=== PATIENT | female | born 1970 | race Caucasian/White ===

== ENCOUNTER 2016-07-27 03:28 | Emergency (ER) | payer MEDICAID ==
[~2016-07-27] VITALS: Ht 154.9 cm; Wt 51.3 kg
--- NOTE | 2016-07-27 03:53 | PHYS DOC ---
Past Medical History Past Medical History: Asthma, Migraines, Other Additional Past Medical Histor: HEP C, ENDOMETRIOSIS Past Surgical History: Hysterectomy, Other Additional Past Surgical Histo: COMPLETE HYSTERECTOMY, LIVER BX Alcohol Use: None Drug Use: Marijuana Adult General Chief Complaint Chief Complaint: Congestion HPI HPI Patient is a 46 year old female presenting to the emergency department for evaluation of cough congestion fevers chills body aches. Symptoms have been going on for 3 days and fever subjective and cough is nonproductive. Patient is in no obvious distress vital signs. Review of Systems Review of Systems Constitutional: Denies fever or chills [] HENT: + nasal congestion and sore throat [] Respiratory: + cough. No shortness of breath [] Cardiovascular: No additional information not addressed in HPI [] GI: Denies abdominal pain, nausea, vomiting, bloody stools or diarrhea [] Neurologic: Denies headache, focal weakness or sensory changes [] Current Medications Current Medications Current Medications Medications (Trade) Dose Ordered Sig/Howard Start Time Stop Time Status Last Admin Dose Admin Albuterol/ Ipratropium (Duoneb) 3 ml 1X ONCE 07/27/16 04:00 07/27/16 04:01 DC 07/27/16 04:01 3 ML Dexamethasone Sodium Phosphate (Decadron) 6 mg 1X ONCE 07/27/16 04:00 07/27/16 04:01 DC 07/27/16 04:05 6 MG Allergies Allergies Allergies Coded Allergies Type Severity Reaction Last Updated Verified azithromycin Allergy Intermediate Rash 07/27/16 Yes Physical Exam Physical Exam Constitutional: Well developed, well nourished, no acute distress, non-toxic appearance. [] HENT: Normocephalic, atraumatic, bilateral external ears normal, pharynx erythemetous but no oral exudates, nose with BL boggy turbinates and rhinorrhea. [] Cardiovascular:Heart rate regular rhythm, no murmur [] Lungs & Thorax: Bilateral breath sounds coarse with I/E wheezing noted. Neurologic: Alert and oriented X 3, normal motor function, normal sensory function, no focal deficits noted. [] Current Patient Data Vital Signs Vital Signs Date Time Temp Pulse Resp B/P Pulse Ox O2 Delivery O2 Flow Rate FiO2 07/27/16 04:01 95 Room Air 07/27/16 03:36 99.2 81 20 99.2 Lab Values Laboratory Tests Test 07/27/16 03:35 Influenza Type A Antigen Negative (NEGATIVE) Influenza Type B Antigen Negative (NEGATIVE) EKG EKG [] Radiology/Procedures Radiology/Procedures Chest x-ray shows normal mediastinum and normal heart size with no free air opacity or pneumothorax. Course & Med Decision Making Course & Med Decision Making Patient with upper respiratory symptoms causing postnasal drip and wheezing. She was given Decadron and DuoNeb here and her symptoms were improved. Vital signs are normal and she looks well so she'll be treated supportively as an outpatient with recommendations for Nasonex Benadryl albuterol and Alma for pain and cough. Patient aware and agreeable with plan for discharge and verbalized understanding of the need for short-term follow-up and strict ER return precautions discussed including worsening pain fevers shortness of breath or other general concerns. Dragon Disclaimer Dragon Disclaimer This electronic medical record was generated, in whole or in part, using a voice recognition dictation system. Departure Departure Impression: Primary Impression: URI (upper respiratory infection) Additional Impression: Wheezing Disposition: 01 HOME, SELF-CARE Condition: GOOD Patient Instructions: Upper Respiratory Infection, Adult Additional Instructions: Use otc nasonex and benadryl for your congestion Scripts Hydrocodone/Apap 5-325 (Alma 5-325 Tablet)1 Each Tablet1 Tab PO PRN Q6HRS #14 TAB Prov:DODIE TALAVERA DO 07/27/16 Albuterol Sulfate (Proair Hfa Inhaler)8.5 Gm Hfa.aer.ad1 Puff INH Q4HRS PRN SHORTNESS OF BREATH #1 INHALER Prov:DODIE TALAVERA DO 07/27/16 Problem Qualifiers DODIE TALAVERA DO July 27, 2016 03:53
[2016-07-27] MEDS ORDERED: IPRATRPIUM/ALBUTEROL 0.5/2.5MG 3 ML NEBU. NEB ONE (04:00)
[2016-07-27] MEDS ORDERED: DEXAMETHASONE SOD PHOS 4 MG/ML VIAL PO ONE (04:00)
[2016-07-27 04:19] LABS: OBC FLU VALID
[2016-07-27] MEDS ORDERED: HYDR-971 PO (04:40)
[2016-07-27] MEDS ORDERED: PROAIR HFA8.5 GM INH (04:40)
[2016-07-27 04:45] VITALS: BP 120/72
--- NOTE | 2016-07-27 07:37 | RAD ---
Indication cough. Frontal and lateral views of the chest were obtained. No prior imaging is available. The heart and pulmonary vessels appear normal. The lungs are clear. An acute finding is not apparent on plain films. IMPRESSION: No acute finding apparent in the chest
== END 2016-07-27 04:48 | disposition home or self-care (01) ==
LOC: ER 03:28
DX: J06.9 Acute upper respiratory infection, unspecified (principal); J45.909 Unspecified asthma, uncomplicated; G43.909 Migraine, unspecified, not intractable, without status migrainosus; Z90.710 Acquired absence of both cervix and uterus; Z86.19 Personal history of other infectious and parasitic diseases; F12.10 Cannabis abuse, uncomplicated; Z88.1 Allergy status to other antibiotic agents
CPT/HCPCS: 71020; 87804; 94640; 99285; J1100; J7620

== ENCOUNTER 2016-10-20 20:54 | Emergency (ER) | payer MEDICAID, OTHER ==
[~2016-10-20] VITALS: Ht 152.4 cm; Wt 46.7 kg
[~2016-10-20 20:54] MED LIST: HYDR-971 PO; PROAIR HFA8.5 GM INH
[2016-10-20 21:05] VITALS: BP 137/86
[2016-10-20] MEDS ORDERED: KETOROLAC TROMETHAMINE 60 MG/2 ML INJ. IM ONE (21:15)
[2016-10-20] MEDS ORDERED: NAPR500T PO (21:38)
--- NOTE | 2016-10-20 21:38 | PHYS DOC ---
Past Medical History Past Medical History: Asthma, Migraines, Other Additional Past Medical Histor: HEP C, ENDOMETRIOSIS Past Surgical History: Hysterectomy, Other Additional Past Surgical Histo: COMPLETE HYSTERECTOMY, LIVER BX Alcohol Use: None Drug Use: Marijuana Adult General Chief Complaint Chief Complaint: RIB PAIN HPI HPI Patient is a 46 year old E male that presents to the emergency department with complaints of left rib pain. She states that she had a migraine this morning which caused her to have nausea with vomiting. She states this caused her left ribs to her. She is concerned she may have broken her ribs. Review of Systems Review of Systems Constitutional: Denies fever or chills [] Eyes: Denies change in visual acuity, redness, or eye pain [] HENT: Denies nasal congestion or sore throat [] Respiratory: Denies cough or shortness of breath; complaining of left rib pain [] Cardiovascular: No additional information not addressed in HPI [] GI: Denies abdominal pain, nausea, vomiting, bloody stools or diarrhea [] : Denies dysuria or hematuria [] Musculoskeletal: Denies back pain or joint pain [] Integument: Denies rash or skin lesions [] Neurologic: Denies headache, focal weakness or sensory changes [] Endocrine: Denies polyuria or polydipsia [] Current Medications Current Medications Current Medications Medications (Trade) Dose Ordered Sig/Howard Start Time Stop Time Status Last Admin Dose Admin Ketorolac Tromethamine (Toradol Im) 60 mg 1X ONCE 10/20/16 21:15 10/20/16 21:16 DC 10/20/16 21:27 60 MG Allergies Allergies Allergies Coded Allergies Type Severity Reaction Last Updated Verified azithromycin Allergy Intermediate Rash 07/27/16 Yes Physical Exam Physical Exam Constitutional: Well developed, well nourished, no acute distress, non-toxic appearance. [] HENT: Normocephalic, atraumatic, bilateral external ears normal, oropharynx moist, no oral exudates, nose normal. [] Eyes: PERRLA, EOMI, conjunctiva normal, no discharge. [] Neck: Normal range of motion, no tenderness, supple, no stridor. [] Cardiovascular:Heart rate regular rhythm, no murmur [] Lungs & Thorax: Bilateral breath sounds clear to auscultation; mild tenderness to palpate over the intercostal spaces, 7-10 left lateral chest wall. Symmetrical chest wall movement with inspiration and expiration. [] Abdomen: Bowel sounds normal, soft, no tenderness, no masses, no pulsatile masses. [] Skin: Warm, dry, no erythema, no rash. [] Back: No tenderness, no CVA tenderness. [] Extremities: No tenderness, no cyanosis, no clubbing, ROM intact, no edema. [] Neurologic: Alert and oriented X 3, normal motor function, normal sensory function, no focal deficits noted. [] Psychologic: Affect normal, judgement normal, mood normal. [] Current Patient Data Vital Signs Vital Signs Date Time Temp Pulse Resp B/P (MAP) Pulse Ox O2 Delivery O2 Flow Rate FiO2 10/20/16 21:05 98.2 79 16 100 Room Air 98.2 EKG EKG [] Radiology/Procedures Radiology/Procedures Chest x-ray reviewed by this provider, no evidence pneumothorax. [] Course & Med Decision Making Course & Med Decision Making Pertinent Labs and Imaging studies reviewed. (See chart for details) [] Dragon Disclaimer Dragon Disclaimer This electronic medical record was generated, in whole or in part, using a voice recognition dictation system. Departure Departure Impression: Primary Impression: Chest wall pain Disposition: HOME, SELF-CARE Condition: LEFT WITHOUT BEING SEEN Referrals: NO PCP (PCP) [facility] Patient Instructions: Chest Wall Pain Scripts Naproxen (NAPROSYN) 500 Mg Tablet 500 MG PO BID Y for feliz, #20 TAB Prov: JODY HUFFMAN APRN 10/20/16 JODY HUFFMAN APRN Oct 20, 2016 21:38
--- NOTE | 2016-10-21 07:30 | RAD ---
Chest 2 views 10/20/2016 Clinical indication: Pain left ribs Comparison: 07/27/2016 chest radiograph Findings: Cardiac and mediastinal silhouettes are within normal limits. No pleural effusion, pneumothorax or focal consolidation. Impression: No acute cardiopulmonary abnormality.
== END 2016-10-20 21:50 | disposition home or self-care (01) ==
LOC: ER 20:54
DX: R07.89 Other chest pain (principal); J45.909 Unspecified asthma, uncomplicated; G43.909 Migraine, unspecified, not intractable, without status migrainosus; Z86.19 Personal history of other infectious and parasitic diseases; Z90.710 Acquired absence of both cervix and uterus; F12.10 Cannabis abuse, uncomplicated; Z88.1 Allergy status to other antibiotic agents
CPT/HCPCS: 71020; 96372; 99284; J1885

== ENCOUNTER 2016-10-25 12:28 | Emergency (ER) | payer OTHER ==
[~2016-10-25 12:28] MED LIST changes: +NAPR500T PO
[2016-10-25 12:34] VITALS: BP 142/88
--- NOTE | 2016-10-25 13:03 | PHYS DOC ---
Past Medical History Past Medical History: Migraines, Other Additional Past Medical Histor: HEP C, Past Surgical History: Hysterectomy Additional Past Surgical Histo: COMPLETE HYSTERECTOMY, LIVER BX Additional Information: 03/28 PPD Alcohol Use: None Drug Use: Marijuana Adult General Chief Complaint Chief Complaint: RIB PAIN [facility] HPI Patient is a 46 year old female presents emergency partner stating that she is having left rib pain and discomfort. Patient states that she was seen here last for the pain and discomfort had x-rays done and was told there was no fractures and sent home with naproxen. 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 She states that she is having increased pain with breathing, taking a deep breath, or leaning back or leaning forward. Patient has not taken anything further for pain and discomfort since last night. Patient states that the discomfort started on her ribs after she had vomited last from having a migraine headache. Review of Systems Review of Systems Constitutional: Denies fever or chills [] Eyes: Denies change in visual acuity, redness, or eye pain [] HENT: Denies nasal congestion or sore throat [] Respiratory: Denies cough or shortness of breath [] Cardiovascular: No additional information not addressed in HPI [] GI: Denies abdominal pain, nausea, vomiting, bloody stools or diarrhea [] : Denies dysuria or hematuria [] Musculoskeletal: Denies back pain or joint pain [] Integument: Denies rash or skin lesions [] Neurologic: Denies headache, focal weakness or sensory changes [] Endocrine: Denies polyuria or polydipsia [] Current Medications Current Medications Current Medications Medications (Trade) Dose Ordered Sig/[facility] Start Time Stop Time Status Last Admin Dose Admin Naproxen (Naprosyn) 500 mg 1X ONCE 10/25/16 13:15 10/25/16 13:16 DC Allergies Allergies Allergies Coded Allergies Type Severity Reaction Last Updated Verified azithromycin Allergy Intermediate Rash 07/27/16 Yes Physical Exam Physical Exam Constitutional: Well developed, well nourished, no acute distress, non-toxic appearance. [] HENT: Normocephalic, atraumatic, bilateral external ears normal, oropharynx moist, no oral exudates, nose normal. [] Eyes: PERRLA, EOMI, conjunctiva normal, no discharge. [] Neck: Normal range of motion, no tenderness, supple, no stridor. [] Cardiovascular:Heart rate regular rhythm, no murmur [] Lungs & Thorax: Bilateral breath sounds clear to auscultation. Left ribs along the lateral lower to on the lateral side appears to be deformity upon palpation no visual deformity noted. No bruising noted. Equal chest expansion noted. Abdomen: Bowel sounds normal, soft, no tenderness, no masses, no pulsatile masses. [] Skin: Warm, dry, no erythema, no rash. [] Back: No tenderness Extremities: No tenderness, no cyanosis, no clubbing, ROM intact, no edema. [] Neurologic: Alert and oriented X 3, normal motor function, normal sensory function, no focal deficits noted. [] Psychologic: Affect normal, judgement normal, mood normal. [] Current Patient Data Vital Signs Vital Signs Date Time Temp Pulse Resp B/P (MAP) Pulse Ox O2 Delivery O2 Flow Rate FiO2 10/25/16 12:34 98.1 76 20 97 Room Air 98.1 EKG EKG [] Radiology/Procedures Radiology/Procedures [][facility] [address] [place] [address] IMAGING REPORT Signed PATIENT: AVA DELGADO ACCOUNT: [id number] : 1970 LOCATION: ER AGE: 46 SEX: F EXAM STATUS: REG ER ORD. PHYSICIAN: NAOMIE CABRAL APRN REASON: left rib pain after vomiting PROCEDURE: RIBS LEFT AND PA CHEST Left RIBS with chest, 3 views, 10/25/2016: History: Trauma, pain There are old healed fractures of the left fourth and fifth ribs. No acute fracture or rib abnormality is detected. There is no evidence of underlying pneumothorax, hemothorax or pulmonary right. The heart size is normal. IMPRESSION: No acute left rib abnormality is detected. DICTATED and SIGNED BY: SINDI BRICE MD DATE: 10/25/16 1314 CC: NAOMIE CABRAL APRN; NO PCP; NON,STAFF ~ Course & Med Decision Making Course & Med Decision Making Pertinent Labs and Imaging studies reviewed. (See chart for details) Rib x-rays and chest x-ray was negative for any abnormalities per radiology. Patient will be discharged home with recommendations to continue to use the naproxen for pain and discomfort ice packs or warm moist packs to the chest wall area. Patient will be provided with 2-3 days off of work. Recommended following up with her primary care physician for any further pain or discomfort. Patient was provided with signs and symptoms to return back to the emergency department. Patient agrees with discharge instructions treatment regimens and follow-up recommendations. [] Dragon Disclaimer Dragon Disclaimer This electronic medical record was generated, in whole or in part, using a voice recognition dictation system. Departure Departure Impression: Primary Impression: Rib pain on left side Disposition: HOME, SELF-CARE Condition: STABLE Referrals: NO PCP (PCP) Patient Instructions: Rib Contusion Additional Instructions: Activity as tolerated. Continue to use her naproxen for pain and discomfort. Ice packs or warm moist packs to the chest wall area several times a day. Follow-up with her primary care physician for further pain management. Return back to the emergency department for signs and symptoms of become worse. NAOMIE CABRAL APRN Oct 25, 2016 13:03
[2016-10-25] MEDS ORDERED: NAPROXEN 500 MG TABLET PO ONE (13:15)
--- NOTE | 2016-10-25 13:19 | RAD ---
Left RIBS with chest, 3 views, 10/25/2016: History: Trauma, pain There are old healed fractures of the left fourth and fifth ribs. No acute fracture or rib abnormality is detected. There is no evidence of underlying pneumothorax, hemothorax or pulmonary right. The heart size is normal. IMPRESSION: No acute left rib abnormality is detected.
== END 2016-10-25 13:57 | disposition home or self-care (01) ==
LOC: ER 12:28
DX: R07.81 Pleurodynia (principal); G43.909 Migraine, unspecified, not intractable, without status migrainosus; F12.10 Cannabis abuse, uncomplicated; F17.200 Nicotine dependence, unspecified, uncomplicated; Z90.710 Acquired absence of both cervix and uterus
CPT/HCPCS: 71101; 99284